=== PATIENT | male | born 1965 | race Caucasian/White ===

== ENCOUNTER → 2020-05-09 | Day surgery (SDC) | payer BC ==
[2020-05-05 10:48] VITALS: BMI 27.0
[~2020-05-09] MED LIST: LACTATED RINGERS 1,000 ML IV SCH; LIDOCAINE 1% (10MG/ML) FOR IV START INTRADERMA ONE; PROPOFOL 10 MG/ML 20 ML VIAL IV ONE
[2020-05-09 08:00] VITALS: RESP 16; TEMP 97.8
--- NOTE | 2020-05-09 09:20 | P.PCN ---
Date of Procedure: 05/09/20 Description of Procedure: BRIEF HISTORY: Patient is a 55-year-old male presenting for outpatient colonoscopy for evaluation of diverticulitis. Patient reports hospitalization for diverticulitis over a month ago. No prior episodes. He reports severe pain and requiring antibiotics. He has been doing well since that time. No family history of colon cancer. PROCEDURE PERFORMED: Colonoscopy with polypectomy. PREOPERATIVE DIAGNOSIS: Diverticulitis, patient bleeds last colonoscopy was 2 years ago. ESTIMATED BLOOD LOSS: Minimal. IV sedation per Anesthesia. PROCEDURE: After informed consent was obtained, the patient, was brought into the endoscopy unit. IV sedation was administered by Anesthesia under continuous monitoring. Digital rectal examination was normal. Initially the Olympus CF-190 flexible video colonoscope was then inserted in the rectum, gradually advanced into the cecum without any difficulty. Careful examination was performed as the scope was gradually being withdrawn. Ileocecal valve and the appendiceal orifice were visualized and appeared normal. Prep was excellent. Mucosa of the cecum, ascending colon, transverse colon, descending colon, sigmoid colon, and rectum appeared normal. A few scattered diverticula noted in the sigmoid colon. 2 diminutive polyps measuring 1 mm in size removed from the hepatic flexure with cold forceps. A pedunculated 10 mm polyp removed from the hepatic flexure with cold snare polypectomy. A flat 4 mm ascending colon polyp removed with cold snare polypectomy. Retroflexion was performed in the rectum and no lesions were seen. The patient tolerated the procedure well. IMPRESSION: Mild sigmoid diverticulosis. 2 polyps removed with cold snare polypectomy from the hepatic flexure and ascending colon. 2 diminutive polyps removed from the hepatic flexure. RECOMMENDATIONS: Findings of this examination were discussed with the patient. Okay to resume diet. Okay to resume medications. Await pathology from polypectomy. Recommend repeat colonoscopy in 3 years for colon polyps, pending pathology from polypectomies.
[2020-05-09 09:39] VITALS: BP 114/69; PULSE 68
== END | disposition home or self-care (01) ==
LOC: ORWHC2ENDO 07:39
PROVIDERS: ATTEND Internal Medicine
DX: D12.3 Benign neoplasm of transverse colon (principal); D12.2 Benign neoplasm of ascending colon; K57.30 Diverticulosis of large intestine without perforation or abscess without bleeding; Z87.891 Personal history of nicotine dependence; Z98.890 Other specified postprocedural states; Z98.42 Cataract extraction status, left eye; Z98.41 Cataract extraction status, right eye
CPT/HCPCS: 88305; 45380; 45385; J2704